=== PATIENT | female | born 1945 | race Caucasian/White ===

== ENCOUNTER 2020-01-05 06:39 | Emergency (ER) | payer MEDICARE, OTHER ==
--- NOTE | 2020-01-05 07:19 | ED Physician Documentation ---
PD HPI NVD - Stated complaint Stated Complaint: NAUSEA/DIARRHEA - Chief complaint Chief Complaint: Abd Pain - History obtained from History obtained from: Patient - History of Present Illness Timing - onset: How many months ago (1) Timing - duration: Months (had some loose stools 1-2 months ago, then firmer, and now wiht persistent diarrhea several times daily for the past 3-4 weeks. No noted groundwater ingestion, bad foods, illness exposure. No localized abd pains, fevers, blood in stool.) Timing - details: Gradual onset, Waxing and waning Associated symptoms: Loss of appetite, Weight loss (mild). No: Fever, Melena, Hematochezia, Near syncope / syncope Contributing factors: Travel (was at their home in [place] when illness started.). No: Sick contact, Bad food, Recent antibiotics Worsened by: Eating (PO intake stimulates diarrhea.) Similar symptoms before: Has not had sx before Recently seen: Not recently seen Review of Systems Constitutional: reports: Myalgias, Fatigue, Weight Loss. denies: Fever, Chills Nose: denies: Rhinorrhea / runny nose, Congestion Throat: denies: Sore throat Respiratory: denies: Cough GI: reports: Abdominal Pain (intermittent crampy; not consistent), Nausea, Diarrhea. denies: Vomiting, Hematemesis, Bloody / black stool : denies: Dysuria, Frequency Neurologic: reports: Generalized weakness. denies: Focal weakness, Numbness, Near syncope PD PAST MEDICAL HISTORY - Past Medical History Cardiovascular: None Respiratory: None GI: Other (irritable bowel. ) - Present Medications Home Medications: Ambulatory Orders Medication Instructions Recorded Confirmed Diphenoxylate/Atropine [Lomotil] 1 each PO QID PRN #12 tablet 01/05/20 Ondansetron Odt [Zofran] 4 mg TL Q6H PRN #15 tablet 01/05/20 metroNIDAZOLE [Flagyl] 500 mg PO BID #20 tablet 01/05/20 - Allergies Allergies/Adverse Reactions: Allergies Allergy/AdvReac Type Severity Reaction Status Date / Time Sulfa (Sulfonamide Allergy Hives Verified 01/05/20 07:02 Antibiotics) steroids Allergy Anaphylaxis Uncoded 01/05/20 07:03 PD ED PE NORMAL - Vitals Vital signs reviewed: Yes - General General: Alert and oriented X 3, No acute distress, Well developed/nourished - HEENT HEENT: Pharynx benign - Neck Neck: Supple, no meningeal sign, No adenopathy - Cardiac Cardiac: RRR, No murmur - Respiratory Respiratory: Clear bilaterally - Abdomen Abdomen: Soft, Non tender, Non distended, No organomegaly. No: Normal bowel sounds (increased mildly) - Female Female : Deferred - Rectal Rectal: Deferred - Back Back: No CVA TTP - Derm Derm: Normal color, Warm and dry - Extremities Extremities: No tenderness to palpate, Normal ROM s pain, No edema, No calf tenderness / cord - Neuro Neuro: Alert and oriented X 3, No motor deficit, Normal speech Results - Vitals Vitals: Vital Signs - 24 hr 01/05/20 01/05/20 01/05/20 06:55 08:30 10:00 Temperature 36.7 C Heart Rate 74 72 70 Respiratory 18 14 16 Rate Blood Pressure 141/74 H 161/72 H 155/76 H O2 Saturation 98 99 98 01/05/20 11:22 Temperature 36.8 C Heart Rate 72 Respiratory 16 Rate Blood Pressure 132/65 H O2 Saturation 98 Oxygen O2 Source Room air - Labs Labs: Laboratory Tests 01/05/20 01/05/20 01/05/20 05:05 05:05 05:05 WBC 7.4 RBC 3.98 L Hgb 11.4 L Hct 35.5 L MCV 89.2 MCH 28.6 MCHC 32.1 RDW 12.1 Plt Count 297 MPV 9.5 Neut # (Auto) 5.3 Lymph # (Auto) 1.1 L Dawson # (Auto) 0.8 Eos # (Auto) 0.1 Baso # (Auto) 0.1 Absolute Nucleated RBC 0.00 Nucleated RBC % 0.0 ESR 79 H Sodium 134 L Potassium 3.9 Chloride 101 Carbon Dioxide 24 Anion Gap 9.0 BUN 20 Creatinine 1.7 H Estimated GFR (MDRD) 29 L Glucose 206 H POC Whole Bld Glucose Lactic Acid Calcium 8.8 Magnesium 1.5 L Total Bilirubin 0.9 AST 15 ALT 19 Alkaline Phosphatase 101 Total Protein 7.2 Albumin 3.5 Globulin 3.7 Albumin/Globulin Ratio 0.9 L Lipase 33 Stl C. diff Tox B Gene 01/05/20 01/05/20 01/05/20 05:05 07:22 10:49 WBC RBC Hgb Hct MCV MCH MCHC RDW Plt Count MPV Neut # (Auto) Lymph # (Auto) Dawson # (Auto) Eos # (Auto) Baso # (Auto) Absolute Nucleated RBC Nucleated RBC % ESR Sodium Potassium Chloride Carbon Dioxide Anion Gap BUN Creatinine Estimated GFR (MDRD) Glucose POC Whole Bld Glucose 195 H Lactic Acid 1.2 Calcium Magnesium Total Bilirubin AST ALT Alkaline Phosphatase Total Protein Albumin Globulin Albumin/Globulin Ratio Lipase Stl C. diff Tox B Gene NEGATIVE PD MEDICAL DECISION MAKING - ED course Complexity details: reviewed results (will get stool studies, results pending. Can try empirically treating with flagyl/antidiarrheal. ), considered differential (suspicious for CDiff, will get stool for studies. She was in ER longer time awaiting her to have BM for studies. ), d/w patient Departure - Departure Disposition: 01 Home, Self Care Clinical Impression: Diarrhea Qualifiers: Diarrhea type: presumed infectious Qualified Code(s): R19.7 - Diarrhea, unspecified Condition: Stable Record reviewed to determine appropriate education?: Yes Instructions: ED Diet Vomiting Diarrhea Follow-Up: YANA HEREDIA MD [Primary Care Provider] - Prescriptions: Diphenoxylate/Atropine [Lomotil] 1 each PO QID PRN #12 tablet PRN Reason: Diarrhea metroNIDAZOLE [Flagyl] 500 mg PO BID #20 tablet Ondansetron Odt [Zofran] 4 mg TL Q6H PRN #15 tablet PRN Reason: Nausea / Vomiting Comments: Your stool studies should result later today or tomorrow to look for infectious causes. Try to stay well-hydrated. Regular diet actually is good. Ondansetron if needed for nausea. Can use the antidiarrheal medicine and see if that helps with the diarrhea. We will see if the stool culture shows a particular germ that needs specific treating. If it does not show particular infection, otherwise could potentially try metronidazole antibiotic and see if that helps improve the diarrhea as well as these do a culture is not 100% sensitive. Discharge Date/Time: 01/05/20 11:23
[2020-01-05] MEDS ORDERED: SODIUM CHLORIDE 0.9% 1,000 ML IV ONE (07:49)
[2020-01-05] MEDS ORDERED: ONDANSETRON 4 MG/2 ML VIAL IVP STA (07:50)
[2020-01-05 08:14] LABS: BASOPHILS # (AUTO) 0.1 10^3/uL (0.0-0.1); BASOPHILS % (AUTO) 0.7 %; EOSINOPHILS # (AUTO) 0.1 10^3/uL (0.0-0.7); EOSINOPHILS % (AUTO) 1.6 %; HGB - HEMOGLOBIN 11.4 g/dL (12.0-16.0); LYMPHOCYTES # (AUTO) 1.1 10^3/uL (1.5-3.5); LYMPHOCYTES % (AUTO) 14.4 %; MEAN CORPUSCULAR HEMOGLOBIN 28.6 pg (27.0-31.0); MEAN CORPUSCULAR HGB CONC 32.1 g/dL (32.0-36.0); MEAN CORPUSCULAR VOLUME 89.2 fL (81.0-99.0); MEAN PLATELET VOLUME 9.5 fL (7.9-10.8); MONOCYTES # (AUTO) 0.8 10^3/uL (0.0-1.0); MONOCYTES % (AUTO) 10.3 %; NEUTROPHILS # (AUTO) 5.3 10^3/uL (1.5-6.6); NEUTROPHILS % (AUTO) 72.5 %; PLT - PLATELET COUNT 297 10^3/uL (130-450); RED BLOOD COUNT 3.98 10^6/uL (4.20-5.40); RED CELL DISTRIBUTION WIDTH 12.1 % (12.0-15.0); WHITE BLOOD COUNT 7.4 x10^3/uL (4.8-10.8)
[2020-01-05 08:26] LABS: ALBUMIN 3.5 g/dL (3.2-5.5); ALBUMIN/GLOBULIN RATIO 0.9 (1.0-2.2); BILIRUBIN,TOTAL 0.9 mg/dL (0.2-1.0); CALCIUM 8.8 mg/dL (8.5-10.3); CREATININE 1.7 mg/dL (0.4-1.0); MAGNESIUM 1.5 mg/dL (1.7-2.8); TOTAL PROTEIN 7.2 g/dL (6.7-8.2)
[2020-01-05 11:23] VITALS: BP 132/65
== END 2020-01-05 11:23 | disposition home or self-care (01) ==
LOC: ED 06:39
DX: R19.7 Diarrhea, unspecified (principal)
CPT/HCPCS: 36415; 80053; 83605; 83690; 83735; 85025; 85651; 87045; 87046; 87493; 96361; 96374; 99284

== ENCOUNTER 2020-04-15 12:21 | Outpatient (CLI) | payer MEDICARE, OTHER ==
[2020-04-15 13:21] LABS: HB2 TOTAL 13.4 g/dL; HEMOGLOBIN A1C 0.87 g/dL; HEMOGLOBIN A1C % 8.1 % (4.6-6.2)
== END 2020-04-15 12:22 | disposition home or self-care (01) ==
LOC: LAB 12:21
PROVIDERS: ATTEND Nurse Practitioner
DX: E11.22 Type 2 diabetes mellitus with diabetic chronic kidney disease (principal); N18.3 Chronic kidney disease, stage 3 (moderate)
CPT/HCPCS: 36415; 83036

== ENCOUNTER 2022-06-27 15:47 | Outpatient (CLI) | payer MEDICARE, OTHER ==
[2022-06-27 16:00] LABS: HCT - HEMATOCRIT 38.4 % (37.0-47.0); HGB - HEMOGLOBIN 12.1 g/dL (12.0-16.0); MEAN CORPUSCULAR HEMOGLOBIN 28.7 pg (27.0-31.0); MEAN CORPUSCULAR HGB CONC 31.5 g/dL (32.0-36.0); MEAN CORPUSCULAR VOLUME 91.2 fL (81.0-99.0); MEAN PLATELET VOLUME 9.7 fL (7.9-10.8); RED BLOOD COUNT 4.21 10^6/uL (4.20-5.40); RED CELL DISTRIBUTION WIDTH 12.7 % (12.0-15.0); WHITE BLOOD COUNT 6.9 x10^3/uL (4.8-10.8)
[2022-06-27 16:06] LABS: BILIRUBIN,URINE NEGATIVE (NEGATIVE); GLUCOSE, URINE (UA) NEGATIVE (NEGATIVE); KETONES,URINE (UA) TRACE mg/dL (NEGATIVE); LEUKOCYTE ESTERASE, URINE NEGATIVE (NEGATIVE); NITRITE,URINE NEGATIVE (NEGATIVE); OCCULT BLOOD,URINE NEGATIVE (NEGATIVE); PROTEIN,URINE NEGATIVE (NEGATIVE); UROBILINOGEN,URINE 0.2 (NORMAL) E.U./dL (NORMAL)
[2022-06-27 16:19] LABS: ALBUMIN 3.9 g/dL (3.2-5.5); CALCIUM 9.3 mg/dL (8.5-10.3); CREATININE 1.3 mg/dL (0.4-1.0); PHOSPHORUS 3.2 mg/dL (2.5-4.6); POTASSIUM 4.5 mmol/L (3.5-5.0)
[2022-06-27 16:23] LABS: BACTERIA,URINE Rare /HPF (None Seen); CASTS, URINE 3-5 Hyaline Casts /LPF; CLARITY,URINE CLEAR (CLEAR); RBC,URINE None Seen /HPF (0-5); SQUAMOUS EPITHELIAL CELL,UR FEW Squamous (<= Few); WBC,URINE 0-3 /HPF (0-5)
[2022-06-27 16:47] LABS: CREATININE,URINE 286.8 mg/dL; PROTEIN/CREATININE RATIO,URINE 0.1 (<=0.2)
== END 2022-06-27 15:48 | disposition home or self-care (01) ==
LOC: LAB 15:47
PROVIDERS: ATTEND Internal Medicine Nephrology
DX: N18.32 Chronic kidney disease, stage 3b (principal)
CPT/HCPCS: 36415; 80069; 81001; 82570; 83970; 84156; 84550; 85027; 87086

== ENCOUNTER 2023-02-08 16:36 | Outpatient (CLI) | payer MEDICARE, OTHER ==
--- NOTE | 2023-02-09 09:13 | MRI Report ---
PROCEDURE: LUMBAR SPINE WO INDICATIONS: LOW BACK PAIN, LUMBAR RADICULOPATHY TECHNIQUE: Noncontrast sagittal T1 spin echo and T2 fast echo, sagittal STIR, coronal T2, axial T1 and T2 fast s pin echo through the lumbar spine. COMPARISON: None. FINDINGS: Image quality: Excellent. Alignment and Curvature: No plain films are available for comparison. Thus, for numbering purposes, 5 lumbar type vertebral bodies will be presumed for the current report. This should be confirmed with plain film correlation prior to any lumbar spinal intervention. 3 mm of retrolisthesis of L2 on L3. 2 mm of retrolisthesis of L3 on L4. 8 mm of anterolisthesis of L4 on L5. Bone Marrow: Marrow is of normal overall signal. No acute vertebral body compression fractures. Mo derate reactive signal within the end plates adjacent to the T12-L1, L1-L2, and L2-L3 intervertebral discs. Mild reactive signal throughout the remaining lumbar and lower thoracic endplates. Spinal Cord: Conus medullaris terminates at the L1 level. Visualized cord demonstrates normal signa l and size. Paraspinous Soft Tissues: No paravertebral masses. T12-L1: Moderate disc height loss and desiccation. Mild diffuse disc bulge. Mild facet and ligament flavum hypertrophy. Mild canal stenosis. Mild bilateral foraminal stenosis. L1-L2: Moderate disc height loss and desiccation. Mild diffuse disc bulge. Mild facet and ligament flavum hypertrophy. Mild epidural lipomatosis. Mild canal stenosis. Mild right greater than left for aminal stenosis. L2-L3: Severe disc height loss and desiccation. Moderate diffuse disc bulge with superimposed broa d-based right far lateral protrusion. Mild facet and ligament flavum hypertrophy. Moderate canal sten osis. Mild left and moderate right foraminal stenosis. L3-L4: Moderate disc desiccation. Mild disc height loss and diffuse disc bulge. Mild facet and liga ment flavum hypertrophy. Mild epidural lipomatosis. Mild canal stenosis. Moderate left and mild right foraminal stenosis. L4-L5: Moderate disc height loss and desiccation. Mild diffuse disc bulge. Moderate facet and ligam ent flavum hypertrophy. Severe canal stenosis. Moderate to severe right and severe left foraminal jose nosis. Left greater than right L4 nerve root compression. L5-S1: Moderate disc height loss and desiccation. Moderate diffuse disc bulge. Moderate bilateral f acet hypertrophy. Mild canal stenosis. Moderate to severe bilateral foraminal stenosis with bilateral L5 nerve root compression. IMPRESSION: 1. Multilevel degenerative disc and facet disease, in addition to epidural lipomatosis and ligamentum flavum hypertrophy. 2. Multilevel canal stenoses, worst at L4-L5 where there is severe canal stenosis. 3. Multilevel foraminal stenoses, worst at L4-L5 and L5-S1 where there is associated foraminal nerve root compression. Recommend correlation with conical symptoms to ascertain relevance of these finding s. 4. Five lumbar type vertebral bodies were presumed for the purposes of the current report. Correlati on with plainfilms for numbering purposes is recommended prior to any lumbar spinal intervention. Reviewed by: Laura Pardo MD on 02/09/2023 9:12 AM PDT Approved by: Laura Pardo MD on 02/09/2023 9:12 AM PDT Station ID: [id number]
== END 2023-02-08 16:37 | disposition home or self-care (01) ==
LOC: DI 16:36
PROVIDERS: ATTEND Physical Medicine & Rehabilitation
DX: M51.36 Other intervertebral disc degeneration, lumbar region (principal); M48.061 Spinal stenosis, lumbar region without neurogenic claudication; M47.816 Spondylosis without myelopathy or radiculopathy, lumbar region; M51.17 Intervertebral disc disorders with radiculopathy, lumbosacral region; M48.07 Spinal stenosis, lumbosacral region; M47.27 Other spondylosis with radiculopathy, lumbosacral region

== ENCOUNTER 2023-08-13 12:29 | Outpatient (CLI) | payer MEDICARE, OTHER ==
[2023-08-13 12:47] LABS: BILIRUBIN,URINE NEGATIVE (NEGATIVE); GLUCOSE, URINE (UA) NEGATIVE (NEGATIVE); KETONES,URINE (UA) NEGATIVE (NEGATIVE); LEUKOCYTE ESTERASE, URINE NEGATIVE (NEGATIVE); NITRITE,URINE NEGATIVE (NEGATIVE); OCCULT BLOOD,URINE NEGATIVE (NEGATIVE); PROTEIN,URINE NEGATIVE (NEGATIVE); UROBILINOGEN,URINE 0.2 (NORMAL) E.U./dL (NORMAL)
[2023-08-13 12:49] LABS: HCT - HEMATOCRIT 39.4 % (37.0-47.0); HGB - HEMOGLOBIN 12.8 g/dL (12.0-16.0); MEAN CORPUSCULAR HEMOGLOBIN 29.1 pg (27.0-31.0); MEAN CORPUSCULAR HGB CONC 32.5 g/dL (32.0-36.0); MEAN CORPUSCULAR VOLUME 89.5 fL (81.0-99.0); MEAN PLATELET VOLUME 9.7 fL (7.9-10.8); RED BLOOD COUNT 4.4 10^6/uL (4.20-5.40); RED CELL DISTRIBUTION WIDTH 12.7 % (12.0-15.0); WHITE BLOOD COUNT 6.1 x10^3/uL (4.8-10.8)
[2023-08-13 12:53] LABS: BACTERIA,URINE Few /HPF (None Seen); CLARITY,URINE CLEAR (CLEAR); RBC,URINE 0-5 /HPF (0-5); SQUAMOUS EPITHELIAL CELL,UR RARE Squamous (<= Few); WBC,URINE 0-3 /HPF (0-5)
[2023-08-13 13:22] LABS: CREATININE,URINE 92.9 mg/dL; PROTEIN/CREATININE RATIO,URINE 0.2 (<=0.2)
[2023-08-13 14:01] LABS: ALBUMIN 4.3 g/dL (3.2-5.5); CREATININE 1.3 mg/dL (0.6-1.3); POTASSIUM 4.8 mmol/L (3.5-4.5); URIC ACID 5.8 mg/dL (2.3-6.6)
== END 2023-08-13 12:30 | disposition home or self-care (01) ==
LOC: LAB 12:29
PROVIDERS: ATTEND Internal Medicine Nephrology
DX: N18.32 Chronic kidney disease, stage 3b (principal)
CPT/HCPCS: 36415; 80069; 81001; 82570; 83970; 84156; 84550; 85027; 87086

== ENCOUNTER 2023-11-23 13:08 | Outpatient (CLI) | payer MEDICARE, OTHER ==
--- NOTE | 2023-11-23 16:18 | MRI Report ---
PROCEDURE: Lumbar Spine WO INDICATIONS: LOW BACK PAIN TECHNIQUE: Noncontrast sagittal T1 spin echo and T2 fast echo, sagittal STIR, axial T1 and T2 fast spin echo thr ough the lumbar spine. In cases with scoliosis, additional coronal T2 fast spin echo may be performe d. COMPARISON: 09/10/2022. FINDINGS: Image quality: Excellent. Alignment and Curvature: Alignment is unchanged. 6 mm anterolisthesis of L4 on L5. Bone Marrow: Marrow is of normal overall signal. No acute vertebral body compression fractures. Spinal Cord: Conus medullaris terminates at the L1/2 level. Visualized cord demonstrates normal sig nal and size. Paraspinous Soft Tissues: No paravertebral masses. T12-L1: Chronic disc height loss. Posterior disc plus osteophyte. Facet hypertrophy. No canal stenos is or significant foraminal stenosis. L1-L2: Severe chronic disc height loss, as before. Posterior disc plus osteophyte. Facet hypertrop hy. . L2-L3: Borderline canal stenosis. Moderate right foraminal stenosis with flattening deformity on t he exiting right L2 nerve root. Mild to moderate left foraminal stenosis L3-L4: Slight interval progression. Disc bulge. Facet and ligament hypertrophy. Moderate canal sten osis. Mild to moderate bilateral foraminal stenosis. L4-L5: No significant change. Exuberant facet hypertrophy. 6 mm anterolisthesis L4 on L5. Diffuse d isc bulge. High-grade central canal stenosis. Moderate right foraminal narrowing with flattening defo rmity on the exiting right L4 nerve root. Severe left foraminal narrowing with left foraminal L4 nerv e root impingement. L5-S1: Unchanged. Moderately large diffuse disc bulge. Prominent facet hypertrophy. Mild to moderat e canal stenosis. Moderate to severe bilateral foraminal stenosis with a degree of bilateral foramina l L5 nerve root impingement. IMPRESSION: 1. There is underlying multilevel facet arthropathy, impressive at L4-L5 and L5-S1. 2. As before, the most significant level is L4-L5, where there is high-grade central canal stenosis a nd severe left foraminal stenosis. 3. Progressive findings at L3-L4. 4. Canal stenosis is moderate at L3-L4, high-grade at L4-L5, and mild to moderate at L5-S1. 5. Multilevel foraminal narrowing as described above. This includes severe left foraminal narrowing a t L4-L5 and moderate to severe bilateral foraminal narrowing at L5-S1. Reviewed by: Dave Kessler MD on 11/23/2023 4:16 PM PDT Approved by: Dave Kessler MD on 11/23/2023 4:16 PM PDT Station ID: [id number]
== END 2023-11-23 13:09 | disposition home or self-care (01) ==
LOC: DI 13:08
PROVIDERS: ATTEND Physical Medicine & Rehabilitation
DX: M48.062 Spinal stenosis, lumbar region with neurogenic claudication (principal); M47.816 Spondylosis without myelopathy or radiculopathy, lumbar region; M47.817 Spondylosis without myelopathy or radiculopathy, lumbosacral region; M48.07 Spinal stenosis, lumbosacral region

== ENCOUNTER 2024-02-10 14:05 | Emergency (ER) | payer MEDICARE, OTHER ==
--- NOTE | 2024-02-10 15:02 | ED Physician Documentation ---
PD HPI LOWER EXT INJURY - Stated complaint Stated Complaint: R HIP PAIN - Chief complaint Chief Complaint: Ext Problem - History obtained from History obtained from: Patient - History of Present Illness PD HPI LOW EXT INJURY LOCATION: Right, Hip Type of injury: Fall Where injury occurred: Home Timing - onset: How many weeks ago (1) Timing - duration: Weeks (1) Pain level max: 6 Pain level now: 3 Improved by: Rest Worsened by: Moving, Palpating - Additional information Additional information: 78-year-old female states that 1 week ago she got up in the middle of the night and tripped and fell landing forward onto her knees and hands. She states that she did not have any pain in the hip initially but the next day she started develop soreness in the right hip. She states that the hip pain has continued to increase since that time. She saw her doctor 2 days ago and had an injection into the bursa over the hip. She states that they ordered an x-ray but it did not get scheduled, therefore she came into the emergency department for an x- ray. Pain is worse with walking, better with rest. She is not using any assistive devices to walk. No cane or walker. No numbness or tingling. No neck or back pain. No head injury. Not on blood thinners. Review of Systems Constitutional: denies: Fever, Chills GI: denies: Nausea, Vomiting, Diarrhea Skin: denies: Rash Musculoskeletal: denies: Neck pain, Back pain Neurologic: denies: Headache PD PAST MEDICAL HISTORY - Past Medical History Past Medical History: Yes Cardiovascular: None Respiratory: None Neuro: None Endocrine/Autoimmune: Type 2 diabetes GI: Other [employer]: None : None HEENT: None Psych: None Musculoskeletal: None Derm: None - Past Surgical History Past Surgical History: No - Present Medications Home Medications: Ambulatory Orders Medication Instructions Recorded Confirmed Diphenoxylate/Atropine [Lomotil] 1 each PO QID PRN #12 tablet 01/05/20 Ondansetron Odt [Zofran] 4 mg TL Q6H PRN #15 tablet 01/05/20 metroNIDAZOLE [Flagyl] 500 mg PO BID #20 tablet 01/05/20 - Allergies Allergies/Adverse Reactions: Allergies Allergy/AdvReac Type Severity Reaction Status Date / Time Sulfa (Sulfonamide Allergy Hives Verified 02/10/24 14:15 Antibiotics) steroids Allergy Anaphylaxis Uncoded 02/10/24 14:15 - Social History Does the pt smoke?: No Smoking Status: Never smoker - Immunizations Immunizations are current?: Yes - POLST Patient has POLST: No PD ED PE NORMAL - Vitals Vital signs reviewed: Yes - General General: Alert and oriented X 3, No acute distress - HEENT HEENT: Moist mucous membranes - Neck Neck: Supple, no meningeal sign - Cardiac Cardiac: RRR, Strong equal pulses - Respiratory Respiratory: No respiratory distress, Clear bilaterally - Abdomen Abdomen: Soft, Non tender, Non distended - Derm Derm: Warm and dry - Extremities Extremities: Other (Tender to palpation at the greater trochanter on the right hip. There is no pain with internal/external rotation. No pain with flexion or extension. Leg is not externally rotated or shortened. Otherwise normal examination of the right lower extremity. No bruising. Neurovascular intact) - Neuro Neuro: Alert and oriented X 3 - Psych Psych: Normal mood, Normal affect Results - Vitals Vitals: Vital Signs - 24 hr 02/10/24 14:10 Temperature 36.5 C Heart Rate 99 Respiratory 16 Rate Blood Pressure 118/60 O2 Saturation 99 Oxygen O2 Source Room air - Rads (name of study) Right hip x-ray Relevant Findings:: Final report received, See rad report Right hip CT Relevant Findings:: Final report received, See rad report PD Medical Decision Making - ED course Complexity details: reviewed results, considered differential, d/w patient ED course: 78-year-old female status post a fall 1 week ago with continued right hip pain. Appears to be a mostly soft tissue injury. X-ray did not show any acute abnormalities but as her pain was worse with axial loading and ambulation, a CT was performed. This is negative as well. She has pain medication for home. Recommend that she use her walker at home to help take pressure off of the hip. Declines any pain medication here. No other acute injuries. Patient counseled regarding signs and symptoms for which I believe and urgent re-evaluation would be necessary. Patient with good understanding of and agreement to plan and is comfortable going home at this time This document was made in part using voice recognition software. While efforts are made to proofread this document, sound alike and grammatical errors may occur. Departure - Departure Disposition: 01 Home, Self Care Clinical Impression: Right hip pain Condition: Good Instructions: ED Strain Muscle Ext Follow-Up: your,doctor if not better in 1 week [Other] Comments: Your x-ray and CT scan are both normal today and do not show any acute injuries. This is likely a soft tissue injury and should get better on its own. I would recommend using a walker to help take weight off of your hip while it heals. Please follow-up with your doctor for further care and return if you worsen. Forms: PCP List
--- NOTE | 2024-02-10 15:07 | XRAY Report ---
PROCEDURE: Hip w/Pelvis 2-3V RT INDICATIONS: R hip pain s/p fall 1 week ago TECHNIQUE: And AP view of the pelvis and a lateral view of the right hip were acquired. COMPARISON: None. FINDINGS: Bones: No fractures or dislocations. No suspicious bony lesions. There is moderate superior joint space narrowing seen involving both hips. There is associated remode ling change, with subchondral sclerosis and osteophyte formation. Note is made of age-appropriate degenerative change of the lower lumbar spine. Soft tissues: No suspicious soft tissue calcifications or masses. Atherosclerotic calcification is seen. IMPRESSION: No acute bony abnormality can be seen by plain film. Moderate bilateral hip degenerative change can be seen. Reviewed by: Arley Pinedo MD on 02/10/2024 2:06 PM CAMMY Approved by: Arley Pinedo MD on 02/10/2024 2:06 PM CAMMY Station ID: [id number]
--- NOTE | 2024-02-10 15:31 | CT Report ---
PROCEDURE: Lower Extremity RT WO INDICATIONS: R hip pain s/p fall TECHNIQUE: Noncontrast 3-mm axial sections acquired from the distal tibial shaft to the talar dome, with coronal and sagittal reformats. For radiation dose reduction, the following was used: automated exposure c ontrol, adjustment of mA and/or kV according to patient size. COMPARISON: Correlation is made with the accompanying plain films. FINDINGS: Image quality: Excellent. Bones: No fractures or dislocations of the right hip or proximal femur can be seen. No fractures of the right pelvis can be seen. No fractures or dislocations are seen. Generalized degenerative changes are seen, including involving the visualized lower lumbar spine. Ost eitis pubis can be seen, which is not considered to be abnormal for a female patient of this age. Soft tissues: Diverticulosis can be seen, without sri findings of active diverticulitis. No dilat ed loops of small bowel are seen. The uterus demonstrates an unremarkable appearance for age. No adne xal masses are seen. No enlarged groin nodes are seen. No bladder wall thickening can be seen. Athero sclerotic calcification is seen. Impression: No fractures or dislocations are seen. Reviewed by: Arley Pinedo MD on 02/10/2024 2:30 PM CAMMY Approved by: Arley Pinedo MD on 02/10/2024 2:30 PM CAMMY Station ID: [id number]
[2024-02-10 15:56] VITALS: BP 114/54; O2SAT 100
== END 2024-02-10 15:54 | disposition home or self-care (01) ==
LOC: ED 14:05
DX: M25.551 Pain in right hip (principal); W01.0XXA Fall on same level from slipping, tripping and stumbling without subsequent striking against object, initial encounter; Y92.009 Unspecified place in unspecified non-institutional (private) residence as the place of occurrence of the external cause; E11.9 Type 2 diabetes mellitus without complications; Z79.84 Long term (current) use of oral hypoglycemic drugs
CPT/HCPCS: 99284